=== PATIENT | female | born 1990 | race American Indian/Alaskan Native ===

== ENCOUNTER 2017-08-04 17:03 | Emergency (ER) | payer OTHER, MEDICAID ==
[2017-08-04] MEDS ORDERED: NORCO 5/325 ONE (17:32)
[2017-08-04] MEDS ORDERED: NORCO 5/325 PO ONE (17:37)
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
[2017-08-04] MEDS ORDERED: MORPHINE IM ONE (21:12)
[2017-08-04] MEDS ORDERED: ZOFRAN ODT PO ONE (21:12)
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
[2017-08-04 21:49] LABS: BUN/Creatinine Ratio 17; Blood Urea Nitrogen 12 mg/dL (7-17); Calcium 9.4 mg/dL (8.4-10.2); Hemolysis Index 30
[2017-08-04] MEDS ORDERED: DILAUDID IM ONE (22:16)
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
[2017-08-05 05:30] VITALS: BP 115/77
== END 2017-08-05 00:10 | disposition home or self-care (01) ==
LOC: ED 17:03
DX: S32.010A Wedge compression fracture of first lumbar vertebra, initial encounter for closed fracture (principal); S32.020A Wedge compression fracture of second lumbar vertebra, initial encounter for closed fracture; V49.49XA Driver injured in collision with other motor vehicles in traffic accident, initial encounter; Y93.89 Activity, other specified; Y92.89 Other specified places as the place of occurrence of the external cause; Y99.8 Other external cause status
CPT/HCPCS: 36415; 70450; 72100; 72125; 72132; 80048; 84703; 96372; 99284; J2270; Q9967; Q0162